=== PATIENT | male | born 2000 | race Caucasian/White ===

== ENCOUNTER 2020-12-25 07:18 | Emergency (ER) | payer OTHER, BC ==
[~2020-12-25] VITALS: Ht 175.3 cm; Wt 95.9 kg
[2020-12-25] MEDS ORDERED: LIDOCAINE 1% MDV 20ML VIAL INFIL ONE (08:25)
--- NOTE | 2020-12-25 08:42 | REP ---
INDICATION: lac to 5th MCP joint area. COMPARISON: None. TECHNIQUE: Four views FINDINGS: There is a laceration adjacent to the medial aspect base proximal phalanx 5th finger in the soft tissues. There is no evidence of fracture or radiopaque foreign body. IMPRESSION: Soft tissue laceration base of 5th finger. No fracture or radiopaque foreign body. <Electronically signed by Jin Castano > 12/25/20 [id number]
[2020-12-25] MEDS ORDERED: NEOSPORIN OINT 0.9 GM PKT TOP ONE (10:45)
[2020-12-25 10:55] VITALS: BP 116/59
== END 2020-12-25 11:09 | disposition home or self-care (01) ==
LOC: M ED 07:18
DX: S61.216A Laceration without foreign body of right little finger without damage to nail, initial encounter (principal); W26.8XXA Contact with other sharp object(s), not elsewhere classified, initial encounter; Y92.9 Unspecified place or not applicable; Y93.9 Activity, unspecified; Y99.0 Civilian activity done for income or pay